=== PATIENT | female | born 1995 | race Caucasian/White ===

== ENCOUNTER 2017-05-13 12:50 | Emergency (ER) | payer MEDICAID ==
[~2017-05-13] VITALS: Ht 144.8 cm; Wt 83.9 kg
[2017-05-13 12:51] VITALS: BP 119/72
--- NOTE | 2017-05-13 14:00 | NUR ---
patient is a 21 yo female bib self for sore throat for 2 weeks. awake and alert no cough no vomiting.
[2017-05-13 14:04] VITALS: BP 119/72
--- NOTE | 2017-05-13 14:04 | NUR ---
Patient discharged with v/s stable. Written and verbal after care instructions given and explained. Patient alert, oriented and verbalized understanding of instructions. Ambulatory with steady gait. All questions addressed prior to discharge. ID band removed. Patient advised to follow up with PMD. Rx of ALBUTEROL/PREDNISONE given. Patient educated on indication of medication including possible reaction and side effects. Opportunity to ask questions provided and answered.
== END 2017-05-13 14:14 | disposition home or self-care (01) ==
LOC: MED 12:50
DX: J98.01 Acute bronchospasm (principal); B34.9 Viral infection, unspecified
CPT/HCPCS: 99283

== ENCOUNTER 2017-05-17 12:21 | Emergency (ER) | payer MEDICAID ==
[~2017-05-17] VITALS: Ht 144.8 cm; Wt 81.7 kg
[2017-05-17 12:22] VITALS: BP 138/86
--- NOTE | 2017-05-17 12:47 | NUR ---
21/F PRESENT TO ER C/O NAUSEA AND VOMITING x 4 DAYS . PT HAS N/V BUT DENIES DIARRHEA OR CONSTIPATION. PT WAS SEEN FOR THROAT PROBLEMS IN [facility] ED ON SATURDAY. MEDS: PREDNISONE 20MG HX: SEIZURES . DENIES DIARRHEA; SKIN IS PINK/WARM/DRY; AAOX4 WITH EVEN AND STEADY GAIT; LUNGS CLEAR BL; HR EVEN AND REGULAR; PT DENIES ANY FEVER, CP, SOB, OR COUGH AT THIS TIME; PATIENT STATES PAIN OF 0/10 AT THIS TIME; VSS; PATIENT POSITIONED FOR COMFORT; HOB ELEVATED; BEDRAILS UP X2; BED DOWN. ER MD MADE AWARE OF PT STATUS.
[2017-05-17] MEDS ORDERED: NACL 0.9% 1,000 ML IV ONE (12:55)
[2017-05-17] MEDS ORDERED: ONDANSETRON 4 MG/2 ML VIAL IVP ONE (12:55)
[2017-05-17 13:21] LABS: BASOPHILS # (AUTO) 0.1 K/uL (0.00-0.22); BASOPHILS % (AUTO) 0.7 % (0.0-2.0); EOSINOPHILS # (AUTO) 0.2 K/uL (0-0.4); HEMATOCRIT 42.2 % (36-48); HEMOGLOBIN 13.9 g/dL (12.0-16.0); LYMPHOCYTES # (AUTO) 1.2 K/uL (2.5-16.5); LYMPHOCYTES % (AUTO) 12.8 % (20.5-51.1); MEAN CORPUSCULAR HEMOGLOBIN 28 pg (27-31); MEAN CORPUSCULAR HGB CONC 33 g/dL (33-37); MEAN CORPUSCULAR VOLUME 85 fL (80-94); MONOCYTES # (AUTO) 0.2 K/uL (0.8-1.0); MONOCYTES % (AUTO) 1.8 % (1.7-9.3); NEUTROPHILS # (AUTO) 7.6 K/uL (1.8-7.7); NEUTROPHILS % (AUTO) 82.7 % (42.2-75.2); PLATELET COUNT (AUTO) 279 K/uL (140-450); RED BLOOD CELL COUNT(AUTO) 4.97 MIL/uL (4.20-5.40); RED CELL DISTRIBUTION WIDTH 13.4 % (11.6-13.7); WHITE BLOOD COUNT (AUTO) 9.3 K/uL (4.8-10.8)
[2017-05-17 13:36] LABS: ANION GAP 12.5 (8-16); CARBON DIOXIDE 30.6 mmol/L (21-32); CREATININE 0.9 mg/dL (0.6-1.3); POTASSIUM 4.1 mmol/L (3.5-5.1)
[2017-05-17 13:42] LABS: ALBUMIN 3.1 g/dL (3.4-5.0); TOTAL BILIRUBIN 0.2 mg/dL (0.0-1.0)
--- NOTE | 2017-05-17 14:40 | NUR ---
AAO PT AMBULATES TO THE RESTROOM FOR URINE SAMPLE '
[2017-05-17 14:58] LABS: APPEARANCE,URINE CLEAR (CLEAR); BILIRUBIN,URINE NEGATIVE (NEGATIVE); BLOOD, URINE NEGATIVE (NEGATIVE); COLOR,URINE YELLOW (YELLOW); LEUKOCYTE ESTERASE ,URINE NEGATIVE (NEGATIVE); NITRITE, URINE NEGATIVE (NEGATIVE); PH,URINE 5.5 (5.0-9.0); UGLUCOSE NEGATIVE (NEGATIVE)
[2017-05-17 15:39] VITALS: BP 118/78
--- NOTE | 2017-05-17 15:39 | NUR ---
Patient discharged with v/s stable. Written and verbal after care instructions given and explained. Patient alert, oriented and verbalized understanding of instructions. Ambulatory with steady gait. All questions addressed prior to discharge. ID band removed. Patient advised to follow up with PMD. Rx of FEDERICAITUSSINMILKA given. Patient educated on indication of medication including possible reaction and side effects. Opportunity to ask questions provided and answered.
== END 2017-05-17 15:39 | disposition home or self-care (01) ==
LOC: MED 12:21
DX: B34.9 Viral infection, unspecified (principal)
CPT/HCPCS: 36415; 71010; 80053; 81003; 81025; 83690; 85025; 96361; 96374; 99285; J2405; J7030; Q0092

== ENCOUNTER 2017-06-06 12:43 | Emergency (ER) | payer MEDICAID, OTHER ==
[~2017-06-06] VITALS: Ht 147.3 cm; Wt 83.9 kg
[2017-06-06 12:56] VITALS: BP 139/92
--- NOTE | 2017-06-06 13:15 | NUR ---
21 f presents to the ER with consistent cough, throat pain x 1 month. Pt seen here for same c/o previously. Pt sts medications sent home with are not helping. No drooling noted. Pt able to swallow. Pt denies any fevers, chills, or n/v/d. Pt is aox4, rr are even and unlabored. Pt positioned to comfort, bed down. Will continue to monitor.
[2017-06-06 14:26] VITALS: BP 138/90
== END 2017-06-06 14:26 | disposition home or self-care (01) ==
LOC: MED 12:43
DX: J02.8 Acute pharyngitis due to other specified organisms (principal)
CPT/HCPCS: 99283

== ENCOUNTER 2017-11-17 03:43 | Emergency (ER) | payer MEDICAID, OTHER ==
[~2017-11-17] VITALS: Ht 144.8 cm; Wt 89.1 kg
[2017-11-17 03:46] VITALS: BP 133/75
--- NOTE | 2017-11-17 03:49 | NUR ---
TO BED # 5 , AMBULATORY, REPORT GIVEN TO JUAN JOSE SHAH.
--- NOTE | 2017-11-17 03:51 | NUR ---
PATIENT PRESENTS TO ED WITH RIGHT FOOT PAIN AFTER FALLING DOWN THE STAIRS. PT STATES DENIES N/V/D; SKIN IS PINK/WARM/DRY; AAOX4 WITH EVEN AND STEADY GAIT; LUNGS CLEAR BL; HR EVEN AND REGULAR; PT DENIES ANY FEVER, CP, SOB, OR COUGH AT THIS TIME; PATIENT STATES PAIN OF 0/10 AT THIS TIME; VSS; PATIENT POSITIONED FOR COMFORT; HOB ELEVATED; BEDRAILS UP X1; BED DOWN. ER MD MADE AWARE OF PT STATUS.
--- NOTE | 2017-11-17 04:38 | NUR ---
wind energy technician at bedside.
--- NOTE | 2017-11-17 05:00 | NUR ---
Dr. Delacruz evaluating patient at bedside.
--- NOTE | 2017-11-17 05:11 | NUR ---
Patient discharged with v/s stable. Written and verbal after care instructions given and explained. Patient verbalized understanding. Ambulatory WITH CRUTCHES with FRIEND to home. All questions addressed prior to discharge. Advised to follow up with PMD.
[2017-11-17 05:12] VITALS: BP 133/75
== END 2017-11-17 05:11 | disposition home or self-care (01) ==
LOC: MED 03:43
DX: S93.601A Unspecified sprain of right foot, initial encounter (principal); Z91.040 Latex allergy status; W19.XXXA Unspecified fall, initial encounter; Y93.89 Activity, other specified; Y92.89 Other specified places as the place of occurrence of the external cause; Y99.8 Other external cause status
CPT/HCPCS: 73630; 99284

== ENCOUNTER 2018-10-28 17:27 | Emergency (ER) | payer MEDICAID ==
[~2018-10-28] VITALS: Ht 144.8 cm; Wt 85.7 kg
[2018-10-28 17:38] VITALS: BP 136/80
--- NOTE | 2018-10-28 17:44 | NUR ---
PT AMBULATED TO ER BED 05
--- NOTE | 2018-10-28 18:03 | NUR ---
C/O RASH TO LOWER ABDOMEN, BILAT UPPER THIGHS & BACK X 1 MONTH. PT STATES IT IS VERY ITCHY, ONLY PAINFUL SOMETIMES. RED/SCABBED RASH PRESENT. DENIES N/V/D/FEVER. PT STATES SHE HAS NOT TAKEN ANY OTC MEDICATIONS AT HOME. SKIN IS PINK/WARM/DRY. PT IS ALERT AND ANSWERING QUESTIONS APPROPRIATELY. PT REPORTS SCRATCHY THROAT AND RUNNY NOSE X 2 DAYS WELL.
[2018-10-28 19:25] VITALS: BP 121/78
--- NOTE | 2018-10-28 19:25 | NUR ---
Patient discharged with v/s stable. Written and verbal after care instructions given and explained. Patient alert, oriented and verbalized understanding of instructions. Ambulatory with steady gait. All questions addressed prior to discharge. ID band removed. Patient advised to follow up with PMD. Rx of ELIMITE, PREDNISONE 20 MG, BENADRYL 25MG given. Patient educated on indication of medication including possible reaction and side effects. Opportunity to ask questions provided and answered.
== END 2018-10-28 19:25 | disposition home or self-care (01) ==
LOC: MED 17:27
DX: B86 Scabies (principal); J04.0 Acute laryngitis
CPT/HCPCS: 99283

== ENCOUNTER 2019-01-14 17:30 | Emergency (ER) | payer MEDICAID ==
[~2019-01-14] VITALS: Ht 147.3 cm; Wt 99.8 kg
[2019-01-14 17:42] VITALS: BP 150/98
--- NOTE | 2019-01-14 17:42 | NUR ---
PT C/O INTERMITTENT CRAMPING UPPER ABDOMINAL PAIN 3/10 FOR 3 DAYS. WITH NAUSEA AND VOMITING FOR 2 DAYS. DENIES DIARRHEA OR CONSTIPATION. PT ALSO REPORTS NOT HAVING PERIODS FOR 6 MONTHS. PT DENIES ANY FEVER, CP, SOB, OR COUGH AT THIS TIME; VSS; ABDOMEN SOFT W/O TENERNESS. PATIENT POSITIONED FOR COMFORT; HOB ELEVATED; BEDRAILS UP X1; BED DOWN. ER MD MADE AWARE OF PT STATUS.
[2019-01-14] MEDS ORDERED: PANTOPRAZOLE 40 MG TABEC PO ONE (17:55)
[2019-01-14] MEDS ORDERED: DICYCLOMINE HCL LIQUID 10 MG/5 ML UDC PO ONE (17:55)
[2019-01-14] MEDS ORDERED: ALUMINUM HYD/MAG/SIMETHICONE 30 ML UDC PO ONE (17:55)
[2019-01-14] MEDS ORDERED: LIDOCAINE VISCOUS 2% 20 ML UDC PO ONE (17:55)
[2019-01-14] MEDS ORDERED: ONDANSETRON 4 MG/2 ML VIAL IM ONE (17:55)
--- NOTE | 2019-01-14 18:00 | NUR ---
PT IS ASSISTED TO XRAY VIA WHEELCHAIR.
[2019-01-14 19:03] VITALS: BP 138/91
--- NOTE | 2019-01-14 19:03 | NUR ---
Patient discharged with v/s stable. Written and verbal after care instructions given and explained. Patient alert, oriented and verbalized understanding of instructions. Ambulatory with steady gait. All questions addressed prior to discharge. ID band removed. Patient advised to follow up with PMD. Rx of SHERIDAN LAX, MINERAL OIL given. Patient educated on indication of medication including possible reaction and side effects. Opportunity to ask questions provided and answered.
== END 2019-01-14 19:03 | disposition home or self-care (01) ==
LOC: MED 17:30
DX: K59.00 Constipation, unspecified (principal); R11.2 Nausea with vomiting, unspecified; Z98.890 Other specified postprocedural states; Z86.69 Personal history of other diseases of the nervous system and sense organs; Z86.79 Personal history of other diseases of the circulatory system; Z91.040 Latex allergy status
CPT/HCPCS: 74022; 81002; 81025; 96372; 99284; J2405

== ENCOUNTER 2020-07-02 14:34 | Emergency (ER) | payer MEDICAID, OTHER ==
[~2020-07-02] VITALS: Ht 160 cm; Wt 103.0 kg
[2020-07-02 14:45] VITALS: BP 141/77
--- NOTE | 2020-07-02 15:06 | NUR ---
24 Y/O FEMALE C/O RIGHT ARM PAIN X2 DAYS. PATIENT STATES SHE WAS WASHING DISHES FOR 4 HOURS YESTERDAY BUT DENIES ANY TRAUMA OR INJURY. RADIAL PULSES PRESENT BILAT. NO SWELLING OR REDNESS NOTED. SKIN INTACT. AMBULATORY WITH STEADY GAIT.
[2020-07-02] MEDS: KETOROLAC 60 MG/2 ML VIAL IM ONE (15:11)
--- NOTE | 2020-07-02 15:30 | NUR ---
PATIENT TAKEN TO XRAY VIA WHEELCHAIR
[2020-07-02 16:25] VITALS: BP 141/77
--- NOTE | 2020-07-02 16:25 | NUR ---
Patient discharged with v/s stable. Written and verbal after care instructions given and explained. Patient alert, oriented and verbalized understanding of instructions. Ambulatory with steady gait. All questions addressed prior to discharge. ID band removed. Patient advised to follow up with PMD. Rx of Naprosyn 500mg, Flexeril 5mg given. Patient educated on indication of medication including possible reaction and side effects. Opportunity to ask questions provided and answered.
== END 2020-07-02 16:25 | disposition home or self-care (01) ==
LOC: MED 14:34
DX: M25.511 Pain in right shoulder (principal); M79.601 Pain in right arm; F17.210 Nicotine dependence, cigarettes, uncomplicated; Z71.6 Tobacco abuse counseling; I51.9 Heart disease, unspecified; X58.XXXA Exposure to other specified factors, initial encounter; Y93.89 Activity, other specified; Y92.89 Other specified places as the place of occurrence of the external cause; Y99.8 Other external cause status
CPT/HCPCS: 73030; 96372; 99283; J1885

== ENCOUNTER 2021-01-03 06:35 | Emergency (ER) | payer MEDICAID, OTHER ==
[~2021-01-03] VITALS: Ht 144.8 cm; Wt 102.5 kg
[2021-01-03 06:45] VITALS: BP 124/78
--- NOTE | 2021-01-03 06:45 | NUR ---
TO BED AMBULATORY
--- NOTE | 2021-01-03 07:14 | NUR ---
Report received from PABLO Camejo. Transfer of care received
--- NOTE | 2021-01-03 07:25 | NUR ---
ER MD BEDSIDE EVALUATING PT
--- NOTE | 2021-01-03 07:46 | NUR ---
PT BLOOD TAKEN BEDSIDE AND WALKED OVER TO LAB
--- NOTE | 2021-01-03 07:53 | NUR ---
25 FEMALE WITH ABDOMINAL PAIN SINCE AROUND 3PM YESTERDAY (01/02/21). PT STATES PAIN STARTED AND NOW RADIATES TO BACK AREA. PT ALSO STATES SHE HAS EXPERIENCED FROM N/V SINCE 3PM YESTERDAY WELL. DENIES ANY DIARRHEA AND LAST BM WAS 01/02/21. PMH: SEZIURES ALLERGIES: LATEX
[2021-01-03 07:56] LABS: BASOPHILS # (AUTO) 0.1 K/uL (0.00-0.22); BASOPHILS % (AUTO) 0.8 % (0.0-2.0); EOSINOPHILS # (AUTO) 0.4 K/uL (0-0.4); EOSINOPHILS % (AUTO) 4.9 % (0.0-4.0); HEMATOCRIT 39.9 % (36-48); HEMOGLOBIN 12.9 g/dL (12.0-16.0); LYMPHOCYTES # (AUTO) 1.1 K/uL (2.5-16.5); MEAN CORPUSCULAR HEMOGLOBIN 27 pg (27-31); MEAN CORPUSCULAR HGB CONC 32 g/dL (33-37); MEAN CORPUSCULAR VOLUME 83.1 fL (80-94); MONOCYTES # (AUTO) 0.5 K/uL (0.8-1.0); MONOCYTES % (AUTO) 6.3 % (1.7-9.3); NEUTROPHILS # (AUTO) 6.3 K/uL (1.8-7.7); PLATELET COUNT (AUTO) 230 K/uL (140-450); RED CELL DISTRIBUTION WIDTH 14.8 % (11.6-13.7); WHITE BLOOD COUNT (AUTO) 8.4 K/uL (4.8-10.8)
[2021-01-03] MEDS: ALUMINUM HYD/MAG/SIMETHICONE 30 ML UDC PO ONE (08:02)
[2021-01-03] MEDS: FAMOTIDINE 20 MG TAB PO ONE (08:02)
[2021-01-03 08:07] LABS: ANION GAP 11.4 (8-16); CARBON DIOXIDE 27.8 mmol/L (21-32); CREATININE 0.8 mg/dL (0.6-1.3); POTASSIUM 4.2 mmol/L (3.5-5.1); TOTAL BILIRUBIN 0.3 mg/dL (0.0-1.0)
[2021-01-03 09:07] LABS: APPEARANCE,URINE HAZY (CLEAR); BILIRUBIN,URINE NEGATIVE (NEGATIVE); BLOOD, URINE NEGATIVE (NEGATIVE); COLOR,URINE YELLOW (YELLOW); LEUKOCYTE ESTERASE ,URINE 1+ (NEGATIVE); NITRITE, URINE NEGATIVE (NEGATIVE); UGLUCOSE NEGATIVE (NEGATIVE)
--- NOTE | 2021-01-03 09:14 | NUR ---
PT CURRENTLY RESTING IN BED WITH EYES OPEN AND LIGHTS OFF. BED IN LOWEST POSITION WITH SIDERAIL X1 UP AND LOCKED. VITAL SIGNS STABLE. WILL CONTINUE TO MONITOR
[2021-01-03 09:17] LABS: RBC,URINE 0-5 /HPF (0-5)
[2021-01-03 09:34] VITALS: BP 120/77
--- NOTE | 2021-01-03 09:35 | NUR ---
Patient discharged with v/s stable. Written and verbal after care instructions given for abdominal pain and explained. Patient verbalized understanding. Ambulatory with steady gait. All questions addressed prior to discharge. Advised to follow up with PMD.
== END 2021-01-03 09:34 | disposition home or self-care (01) ==
LOC: MED 06:35
DX: R10.13 Epigastric pain (principal); Z91.040 Latex allergy status
CPT/HCPCS: 36415; 80053; 81001; 81025; 83690; 84703; 85025; 87086; 99283

== ENCOUNTER 2021-06-01 10:47 | Emergency (ER) | payer MEDICAID, OTHER ==
[~2021-06-01] VITALS: Ht 149.9 cm; Wt 107.5 kg
[2021-06-01 10:59] VITALS: BP 142/99
[2021-06-01] MEDS ORDERED: IBUPROFEN 600 MG TAB PO ONE (12:10)
[2021-06-01] MEDS ORDERED: IBUP-2213 PO (13:19)
[2021-06-01] MEDS ORDERED: IBUPROFEN 600 MG TAB ONE (13:42)
--- NOTE | 2021-06-01 13:45 | NUR ---
25 y/o F BIB self from home c/o mechanical fall x 1 day ago. Pt reports taking a step down a set of stairs and rolling her R ankle forward. Pt denies LOC, injury, head/neck/back pain. Pt reports R ankle LE swelling and bruising. States 10/10, sore/constant, non-radiating pain. Denies medications prior to arrival. Pt states pain worsens with weight-bearing, however, patient still able to ambulate "with a limp." pmh: 3 open heart surgeries, seizures, cardiac hx allergy: latex med: denies
== END 2021-06-01 13:49 | disposition home or self-care (01) ==
LOC: MED 10:47
DX: S80.01XA Contusion of right knee, initial encounter (principal); Z91.040 Latex allergy status; Z79.899 Other long term (current) drug therapy; W18.09XA Striking against other object with subsequent fall, initial encounter; Y93.89 Activity, other specified; Y92.89 Other specified places as the place of occurrence of the external cause; Y99.8 Other external cause status
CPT/HCPCS: 73562; 73590; 99284